=== PATIENT | male | born 1970 | race Two or more races ===

== ENCOUNTER 2017-12-31 09:00 | Inpatient (IN) ==
[2017-12-31 11:28] LABS: Baso % (Auto) 0.1 % (0.0-2.0); Hematocrit 40.3 % (39.0-51.0); Hemoglobin 13.9 gm/dL (13.0-17.0); Lymph # (Auto) 1.1 th/mm3 (1.0-4.8); Lymph % (Auto) 3.3 % (9.0-44.0); Mean Corpuscular HGB Conc 34.5 % (32.0-36.0); Mean Corpuscular Hemoglobin 30.1 pg (27.0-34.0); Mean Corpuscular Volume 87.1 fL (80.0-100.0); Mean Platelet Volume 8.3 fL (7.0-11.0); Mono # (Auto) 2.5 th/mm3 (0.0-0.9); Mono % (Auto) 7.6 % (0.0-8.0); Neut # (Auto) 29.3 th/mm3 (1.8-7.7); Platelet Count 237 th/mm3 (150-450); Red Blood Count 4.63 mil/mm3 (4.50-5.90); Red Cell Distribution Width 12.9 % (11.6-17.2); White Blood Count 32.9 th/mm3 (4.0-11.0)
[2017-12-31 11:34] LABS: Calcium 8.9 mg/dL (8.5-10.1); Carbon Dioxide 22.7 meq/L (21.0-32.0); Potassium 3.9 meq/L (3.5-5.1)
[2017-12-31] MEDS ORDERED: Clindamycin 900 mg/NS Premix 900 MG/50 ML PIGGYBACK IV.SIG ONE (11:43)
[2017-12-31 11:55] LABS: Lymphocytes 2 % (9-44); Monocytes 8 % (0-8)
[2017-12-31 11:57] LABS: Platelet Estimate Normal (Normal); Platelet Morphology Normal (Normal)
[2017-12-31] MEDS ORDERED: Morphine Inj 4 MG/ML Vial IV.PUSH ONE (13:22)
--- NOTE | 2017-12-31 15:11 | CT ---
EXAM DATE: 12/31/2017 2:37 PM EDT AGE/SEX: 47 years / Male INDICATIONS: Right sided jaw pain and swelling for two days. CLINICAL DATA: This is the patient's initial encounter. Patient reports that signs and symptoms have been present for 2 days and indicates a pain score of 7/10. MEDICAL/SURGICAL HISTORY: None. None. RADIATION DOSE: 15.91 CTDI (mGy) ; Combined studies COMPARISON: [facility], CT FACIAL BONES W IV CON, 12/31/2017. . TECHNIQUE: Helical acquisition was performed using a multirow detector CT scanner during the adminis tration of 82 ml Omnipaque 350 (iohexol) nonionic water-soluble contrast as a cumulative dose for mu ltiple exams. Using automated exposure control and adjustment of the mA and/or kV according to patie nt size, radiation dose was kept as low as reasonably achievable to obtain optimal diagnostic quality images. DICOM format image data is available electronically for review and comparison. FINDINGS: Examination of the skull base demonstrates no evidence of deep infiltrating mucosal lesion. The there is asymmetry of the tonsils and lateral pharyngeal wall with possible increased density within the p restyloid pericardial space on the left. Mucosal lesion involving the tonsil as well as the tongue ba se is not excluded and direct visualization is recommended. There is superficial cellulitis from the mandibular symphysis to the left with thickening of the platysma. There is no evidence of abscess. So litary glands appear normal. Examination of the neck for adenopathy demonstrates no abnormally large lymph nodes by CT criteria wi th the exception of an enlarged group 2 node on the left adjacent to the cellulitis. The thyroid glan d demonstrates no abnormality. Lung apices demonstrate no evidence of pulmonary nodule. Bone windows are unremarkable. CONCLUSION: Superficial cellulitis without abscess Possible mucosal lesion involving the left tonsil as well as the tongue base. Direct visualization is recommended Electronically signed by: Chester Quinones MD 12/31/2017 3:10 PM EDT
--- NOTE | 2017-12-31 15:14 | CT ---
EXAM DATE: 12/31/2017 2:40 PM EDT AGE/SEX: 47 years / Male INDICATIONS: Right sided jaw pain and swelling for two days. CLINICAL DATA: This is the patient's initial encounter. Patient reports that signs and symptoms have been present for 2 days and indicates a pain score of 7/10. MEDICAL/SURGICAL HISTORY: None. None. RADIATION DOSE: . CTDI (mGy) ; Reconstructed from previous dataset, no dose COMPARISON: No prior exams available for comparison. TECHNIQUE: Contiguous images in the axial and coronal planes were obtained using helical multirow de tector technique with 82 ml Omnipaque 350 (iohexol) nonionic water-soluble contrast as a cumulative dose for multiple exams. Using automated exposure control and adjustment of the mA and/or kV accordi ng to patient size, radiation dose was kept as low as reasonably achievable to obtain optimal diagnos tic quality images. DICOM format image data is available electronically for review and comparison. FINDINGS: There is superficial cellulitis with thickening of the platysma. In addition there is abnormal soft t issue density surrounding the body of the mandible at the level of the left molar with abnormal soft tissue density within the nurse licensed practical space. There is a possible subperiosteal fluid and this may refl ect abscess related to dental disease. In addition there is abnormal soft tissue density involving th e tonsil and glossotonsillar sulcus on the left with potential edema in the submandibular gland. Dire ct visualization is recommended. There is no bony destruction or periosteal reaction to suggest osteo myelitis. CONCLUSION: Phlegmonous changes involving the nurse licensed practical space on the left without discrete evidence of osteomyel itis. The findings may be related to dental disease. There is no evidence of abscess. Electronically signed by: Chester Quinones MD 12/31/2017 3:12 PM EDT
[2017-12-31] MEDS ORDERED: Dexamethasone Inj 20 MG/5 ML Vial IV.PUSH ONE (15:31)
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
[2017-12-31] MEDS ORDERED: Prochlorperazine 25 MG Supp RECTAL PRN (16:21)
[2017-12-31] MEDS ORDERED: Bisacodyl 10 MG Supp RECTAL PRN (16:21)
[2017-12-31] MEDS ORDERED: Dextrose 50% in Water 50 ML Vial IV.PUSH PRN (16:25)
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
[2017-12-31] MEDS: Sod Chloride 0.9% Inj 1,000 ML IV.CONT SCH (16:42)
[2017-12-31] MEDS: Ampicillin/Sulbactam Inj 3 GM in Sodium Chloride 0.9% Inj 100 ML IV.SIG SCH ×2 (16:50→22:53)
[2017-12-31] MEDS: Heparin - SQ 10,000 UNITS/ML Vial SQ SCH (17:10)
[2017-12-31] MEDS: Insulin NovoLOG Aspart Correctional Sugar Inj SQ SCH ×2 (18:22→23:45)
[2017-12-31] MEDS: Morphine Inj 4 MG/ML Vial IV.PUSH PRN ×3 (19:30→23:45)
[2017-12-31] MEDS: Famotidine PF Inj 20 MG/2 ML Vial IV.PUSH SCH (21:36)
[2017-12-31] MEDS: Senna/Docusate Sodium 8.6/50 MG Tablet PO SCH (21:51)
[2018-01-01] MEDS: Sod Chloride 0.9% Inj 1,000 ML IV.CONT SCH (02:58)
[2018-01-01] MEDS ORDERED: Chlorhexidine Gluconate 2% 1 Pack (2 Cloths) TOPICAL PRN (04:00)
[2018-01-01] MEDS: Ampicillin/Sulbactam Inj 3 GM in Sodium Chloride 0.9% Inj 100 ML IV.SIG SCH ×3 (04:42→17:37)
[2018-01-01] MEDS: Morphine Inj 4 MG/ML Vial IV.PUSH PRN ×6 (04:44→21:04)
[2018-01-01] MEDS: Chlorhexidine Gluconate 2% 1 Pack (2 Cloths) TOPICAL SCH (04:55)
[2018-01-01 05:00] LABS: Activated Partial Thrombo Time 33.6 sec (24.3-30.1); INR 1.1 Ratio; Prothrombin Time 11.6 sec (9.8-11.6)
[2018-01-01 05:10] LABS: Baso % (Auto) 0.1 % (0.0-2.0); Hematocrit 40.3 % (39.0-51.0); Hemoglobin 13.2 gm/dL (13.0-17.0); Lymph # (Auto) 0.9 th/mm3 (1.0-4.8); Mean Corpuscular HGB Conc 32.8 % (32.0-36.0); Mean Corpuscular Hemoglobin 29.1 pg (27.0-34.0); Mean Corpuscular Volume 88.8 fL (80.0-100.0); Mean Platelet Volume 8.5 fL (7.0-11.0); Mono % (Auto) 3.3 % (0.0-8.0); Neut # (Auto) 27.7 th/mm3 (1.8-7.7); Neut % (Auto) 93.6 % (16.0-70.0); Platelet Count 226 th/mm3 (150-450); Red Blood Count 4.54 mil/mm3 (4.50-5.90); White Blood Count 29.6 th/mm3 (4.0-11.0)
[2018-01-01 05:12] LABS: Albumin 3.2 g/dL (3.4-5.0); Anion Gap 8 meq/L (5-15); Aspartate Aminotransferase 11 U/L (15-37); Blood Urea Nitrogen 19 mg/dL (7-18); Calcium 8.9 mg/dL (8.5-10.1); Carbon Dioxide 26.9 meq/L (21.0-32.0); Chloride 103 meq/L (98-107); Glomerular Filtration Rate 85 mL/min (>89); Glucose,Random 126 mg/dL (74-106); Magnesium 2.1 mg/dL (1.5-2.5); Potassium 3.8 meq/L (3.5-5.1); Sodium 138 meq/L (136-145)
[2018-01-01 05:13] LABS: Alanine Aminotransferase 22 U/L (12-78); Phosphorus 2.1 mg/dL (2.5-4.9)
[2018-01-01 05:15] LABS: Alkaline Phosphatase 82 U/L (45-117); Creatine Kinase 140 U/L (39-308); Total Protein 7.5 g/dL (6.4-8.2)
[2018-01-01] MEDS: Heparin - SQ 10,000 UNITS/ML Vial SQ SCH ×2 (06:03→17:38)
[2018-01-01] MEDS: Insulin NovoLOG Aspart Correctional Sugar Inj SQ SCH ×3 (06:04→17:56)
--- NOTE | 2018-01-01 08:01 | MH ---
cc: Simón Stafford MD DATE OF ADMISSION: 12/31/2017 CHIEF COMPLAINT: Left neck swelling. HISTORY OF PRESENT ILLNESS: This is a 47-year-old male who has had just a short-term history of fairly significant left neck swelling. The patient was well a week ago when longer. His symptoms really began over the weekend. He describes when he was eating, he had a sudden pain at one of his molars on the left. This occurred over the weekend and fairly rapidly he developed pain and swelling in the left mandible area. He presented to the emergency department with trismus. A CT completed there does show evidence of a doctor assistant space changes and likely left dental abscess. But in addition, a CT of the neck was completed and this suggested possible left tonsil lesion or swelling at the left tonsil and base of tongue area. The patient again had been completely well up until his dental symptoms. He has been started on IV steroids and antibiotic therapy and although not resolved, he does report improvement. Of note, his white blood cell count was significantly elevated over 32,000. The patient was placed in the intensive care unit out of abundance of caution for airway, although his airway has been fine. PAST MEDICAL HISTORY: Otherwise noncontributory for ENT. PHYSICAL EXAMINATION: A well-developed male in no distress. He is awake, alert and cooperative. The facial exam is symmetric. Facial nerve intact. The external ears are clear. The nasal exam shows no lesion, no bleeding. Exam of the neck does show some tenderness on the left side. I cannot palpate significant adenopathy. There is swelling adjacent to the left mandible and nidus of some more inflammation adjacent and immediately on the left mandible mid ramus. Intraorally, there is some residual swelling of the left tonsil, but no evidence of mucosal lesion and the uvula, now visible, is back towards the midline. ASSESSMENT/PLAN: Left dental abscess. This was a sudden onset and relates initially to a dental infection. The CT findings appeared to be secondary to the left neck infection and intraorally he is doing much better posteriorly as the steroids and antibiotics are taking effect. However, he has not resolved his dental problem. He still feels pain in his tooth; therefore, he should have an oral surgery consult to address the underlying problem. ENT will follow as needed. 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 He is responding to IV antibiotics and IV steroids and has had diminished swelling and in the intermediate period should be continued on his IV medications for the next 48 hours. A consultation as inpatient is not possible; however, Dr. Darling's group has graciously agreed to see the patient once discharged as an outpatient. This was completed by the health care coordinator and information has been sent. Therefore, I recommend the patient continue his IV medications with IV steroids today, Monday and Monday and then discharge to follow up with the oral surgery practice of Dr. Darling as an outpatient. Unfortunately, treatment of his oral problems is outside the scope of ENT. Simón Stafford MD JPTrever/MARY , 07:46 AM , 08:00 AM
[2018-01-01] MEDS: Famotidine PF Inj 20 MG/2 ML Vial IV.PUSH SCH ×2 (08:34→21:03)
[2018-01-01] MEDS: Senna/Docusate Sodium 8.6/50 MG Tablet PO SCH ×2 (08:35→21:07)
--- NOTE | 2018-01-01 10:11 | P.PNCC ---
Subjective Subjective Remarks/Hospital Course: This is a 47-year-old male. Date of admission 12/31/2017. Past medical history is nil. Yesterday, patient was eating a pork chop when he felt like he bit into some cartilage or bone at the back of his tongue. No complications immediately post noted per patient. This morning, patient awoke with a swollen left mandible. Patient took ibuprofen and acetaminophen without relief. He also placed ice on this without relief. He had difficulty swallowing. He presented to [facility] for further evaluation treatment. Patient was noted to have a leukocytosis of 32,000. CT facial bones revealed superficial cellulitis without abscess involving the mandibular symphysis to the left with thickening of the platysma. There is also asymmetry of the tonsils and lateral pharyngeal wall with possible increased density within the prestyloid pericardial space to the left. There is a mucosal lesion involving the tonsils well noted at the tongue base is not excluded and they recommended direct visualization. ENT was consulted by the ED. Patient received 900 mg of clindamycin and 10 mg of dexamethasone. Patient currently has 2 finger trismus. Unable to visualize uvula directly. There is obvious erythema. There is normal phonation. Patient complaining of thirst. We are asked to observe in ICU 01/01 Patient is lying in bed in NAD. afebrile. Objective Vital Signs / I&O: Vital Signs 12/31/17 13:20 12/31/17 13:45 12/31/17 15:51 Temperature Pulse Rate 80 Respiratory Rate 18 18 Blood Pressure 109/53 L 119/56 L Pulse Oximetry 97 12/31/17 18:00 12/31/17 18:13 12/31/17 18:56 Temperature 97.9 F Pulse Rate 80 85 Respiratory Rate 14 21 Blood Pressure 146/69 H Pulse Oximetry 98 97 97 12/31/17 19:00 12/31/17 19:02 12/31/17 19:36 Temperature 99.8 F H Pulse Rate 71 74 Respiratory Rate 26 H 26 H Blood Pressure 146/69 H 146/69 H Pulse Oximetry 97 12/31/17 20:00 12/31/17 21:00 12/31/17 21:37 Temperature 99.8 F H Pulse Rate 80 75 Respiratory Rate 20 20 20 Blood Pressure 125/68 129/67 Pulse Oximetry 95 100 12/31/17 21:49 12/31/17 21:51 12/31/17 22:00 Temperature 99.8 F H Pulse Rate 72 69 Respiratory Rate 14 20 15 Blood Pressure 125/68 130/71 Pulse Oximetry 97 97 12/31/17 23:00 01/01/18 00:00 01/01/18 00:52 Temperature 98.7 F Pulse Rate 64 68 Respiratory Rate 21 15 20 Blood Pressure 127/65 129/68 Pulse Oximetry 96 95 01/01/18 01:00 01/01/18 02:00 01/01/18 02:29 Temperature 99 F Pulse Rate 63 63 Respiratory Rate 19 22 20 Blood Pressure 118/69 128/72 Pulse Oximetry 94 L 96 01/01/18 03:00 01/01/18 04:00 01/01/18 04:55 Temperature 98.8 F Pulse Rate 68 58 L Respiratory Rate 20 12 20 Blood Pressure 117/70 107/58 L Pulse Oximetry 96 98 01/01/18 05:00 01/01/18 06:00 01/01/18 07:00 Temperature 98.6 F Pulse Rate 66 61 63 Respiratory Rate 14 11 L 21 Blood Pressure 132/76 102/55 L 139/79 Pulse Oximetry 97 96 98 01/01/18 08:00 01/01/18 08:59 01/01/18 09:00 Temperature 98.6 F Pulse Rate 73 73 Respiratory Rate 23 17 Blood Pressure 124/72 115/66 Pulse Oximetry 95 96 Intake & Output 12/31/17 01/01/18 01/01/18 18:59 06:59 18:59 Intake Total 150 / 150 1400 / 1400 Output Total 550 / 550 Balance 150 / 150 850 / 850 Weight 103.1 kg 103.2 kg Intake: IV 150 / 150 1400 / 1400 NS Inj 1,000 ML @ 84 mls/hr IV. 1000 / 1000 CONT .[id number] NOHEMY Rx#:[id number] Ofirmev Inj 1,000 mg In 100 ml 200 / 200 @ 400 mls/hr IV.SIG Q6H PRN Rx# :[id number] Unasyn Inj 3 GM In NS Inj 100 100 / 100 200 / 200 ML @ 200 mls/hr IV.SIG Q6H NOHEMY Rx#:[id number] Cleocin 900 mg/NS Premix 900 mg 50 / 50 In 50 ml @ 100 mls/hr IV.SIG ONCE ONE Rx#:[id number] Oral 0 / 0 Output: Urine 550 / 550 Other: # Voids 1 Date of Last Bowel Movement 12/31/17 12/31/17 Result Diagrams: 01/01/18 04:39 01/01/18 04:39 Other Results: Laboratory Results - last 12 hr 12/31/17 12/31/17 01/01/18 18:35 23:23 04:39 WBC 29.6 H RBC 4.54 Hgb 13.2 Hct 40.3 MCV 88.8 MCH 29.1 MCHC 32.8 RDW 13.0 Plt Count 226 MPV 8.5 Neut % (Auto) 93.6 H Lymph % (Auto) 3.0 L [place] % (Auto) 3.3 Eos % (Auto) 0.0 Baso % (Auto) 0.1 Neut # (Auto) 27.7 H Lymph # (Auto) 0.9 L [place] # (Auto) 1.0 H Eos # (Auto) 0.0 Baso # (Auto) 0.0 WBC Differential . Differential Comment Auto diff final PT INR APTT Sodium Potassium Chloride Carbon Dioxide Anion Gap BUN Creatinine Estimated GFR POC Glucose 130 H Random Glucose Lactic Acid Calcium Phosphorus Magnesium Total Bilirubin AST ALT Alkaline Phosphatase Total Creatine Kinase Total Protein Albumin Nasal Screen MRSA (PCR) Not detected 01/01/18 01/01/18 01/01/18 04:39 04:39 04:39 WBC RBC Hgb Hct MCV MCH MCHC RDW Plt Count MPV Neut % (Auto) Lymph % (Auto) [place] % (Auto) Eos % (Auto) Baso % (Auto) Neut # (Auto) Lymph # (Auto) [place] # (Auto) Eos # (Auto) Baso # (Auto) WBC Differential Differential Comment PT 11.6 INR 1.1 APTT 33.6 H Sodium 138 Potassium 3.8 Chloride 103 Carbon Dioxide 26.9 Anion Gap 8 BUN 19 H Creatinine 0.96 Estimated GFR 85 L POC Glucose Random Glucose 126 H Lactic Acid 1.3 Calcium 8.9 Phosphorus 2.1 L Magnesium 2.1 Total Bilirubin 0.5 AST 11 L ALT 22 Alkaline Phosphatase 82 Total Creatine Kinase 140 Total Protein 7.5 Albumin 3.2 L Nasal Screen MRSA (PCR) 01/01/18 06:02 WBC RBC Hgb Hct MCV MCH MCHC RDW Plt Count MPV Neut % (Auto) Lymph % (Auto) [place] % (Auto) Eos % (Auto) Baso % (Auto) Neut # (Auto) Lymph # (Auto) [place] # (Auto) Eos # (Auto) Baso # (Auto) WBC Differential Differential Comment PT INR APTT Sodium Potassium Chloride Carbon Dioxide Anion Gap BUN Creatinine Estimated GFR POC Glucose 122 H Random Glucose Lactic Acid Calcium Phosphorus Magnesium Total Bilirubin AST ALT Alkaline Phosphatase Total Creatine Kinase Total Protein Albumin Nasal Screen MRSA (PCR) Imaging: Face CT 12/31/17 11:01 CONCLUSION: Phlegmonous changes involving the therapeutic recreation assistant space on the 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 The findings may be related to dental disease. There is no evidence of abscess. Soft Tissue Neck CT 12/31/17 11:34 CONCLUSION: Superficial cellulitis without abscess Possible mucosal lesion involving the left tonsil as well as the tongue base. Direct visualization is recommended Objective Remarks: GENERAL: Patient is 47 yo lying in bed in NAD SKIN: Warm and dry. HEAD: Normocephalic. EYES: No scleral icterus. No injection or drainage. NECK: Supple, trachea midline. No JVD or lymphadenopathy. CARDIOVASCULAR: Regular rate and rhythm without murmurs, gallops, or rubs. RESPIRATORY: Breath sounds equal bilaterally. No accessory muscle use. GASTROINTESTINAL: Abdomen soft, non-tender, nondistended. MUSCULOSKELETAL: No cyanosis, or edema. Neuro: Awake and alert Assessment and Plan - Assessment and Plan Plan: Neuro/Psych: Ofirmev 1 g IV every 6 hours as needed fever/pain 1 through 5 Morphine sulfate 2 mg IV every 2 hours as needed pain 6-10 CV: Patient is currently normal saline at 84 cc an hour Monitor HR and BP keep MAP>65mmHg Lactic acid 1.3 Resp: Continue with oxygen keep sats >92% Incentive spirometry while awake As needed albuterol aerosols every 2 hours as needed for dyspnea GI: N.p.o. status Famotidine for GI prophylaxis Docusate sodium/senna 1 tablet twice daily for bowel regimen Endo: SSI with aspart insulin with Accu-Cheks every 6 hours to maintain euglycemia while on high-dose dexamethasone Renal: Monitor renal function, I/O's, electrolytes replaceemnt per protocol. IVF as stated above Heme: Leukocytosis neutrophil predominance Monitor CBC daily. Follow trends ID: Left mandible cellulitis. Currently on ampicillin/sulbactam 3 g IV every 6 hours. Received 900 mg clindamycin in ED. On Decadron 4mg IV Q6 Follow up on BC, ID eval. ENT: Left superficial cellulitis without abscess. Possible mucosal lesion involving the left tonsil and tongue base. Di Seen by Dr. Stafford , OMFS consulted Continue antibiotics as above and dexamethasone 4 mg IV every [address] soft tissue neck revealed asymmetry of the tonsils and lateral pharyngeal wall with possible increased density within the styloid pericardial space left. Mucosal lesion involving the tonsils was time based on excluded. Superficial cellulitis from the mandibular symphysis to the left with thickening of the platysma. No abscess. Possible large continued left adjacent cellulitis. Access -Utilize peripheral IV. Prophylaxis -GI -famotidine -DVT -SCD/heparin subcu Will sign off and transfer care to [facility]P Level 2
[2018-01-01] MEDS ORDERED: Magnesium Sulfate Inj 4 GM in Sodium Chlor 0.9% Inj 92 ML IV.SIG PRN (10:17)
[2018-01-01] MEDS ORDERED: Potassium Chlor 40 mEq Premix 40 MEQ/100 ML PIGGYBACK IV.SIG PRN ×2 (10:17)
[2018-01-01] MEDS ORDERED: Potassium Phosphate Inj 30 MMOL in Sodium Chlor 0.9% Inj 250 ML IV.SIG PRN (10:17)
[2018-01-01] MEDS ORDERED: Potassium Phosphate 500 MG Soluble Tablet PO PRN ×2 (10:17)
[2018-01-01] MEDS ORDERED: Potassium Chloride 25 MEQ Effervescent Tablet PO PRN (10:17)
[2018-01-01] MEDS ORDERED: Magnesium Oxide 400 MG Tablet PO PRN (10:17)
[2018-01-01] MEDS ORDERED: Sodium Phosphate Inj 30 MMOL in Sodium Chlor 0.9% Inj 250 ML IV.SIG PRN (10:17)
[2018-01-01] MEDS ORDERED: Magnesium Sulfate Inj 2 GM in Sodium Chlor 0.9% Inj 96 ML IV.SIG PRN (10:17)
[2018-01-01] MEDS ORDERED: Potassium Chlor 20 mEq Premix 20 MEQ/100 ML PIGGYBACK IV.SIG PRN ×2 (10:17)
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
[2018-01-02] MEDS: Ampicillin/Sulbactam Inj 3 GM in Sodium Chloride 0.9% Inj 100 ML IV.SIG SCH ×5 (00:28→23:55)
[2018-01-02] MEDS: Morphine Inj 4 MG/ML Vial IV.PUSH PRN (01:07)
[2018-01-02] MEDS: Sod Chloride 0.9% Inj 1,000 ML IV.CONT SCH (01:10)
[2018-01-02 03:30] LABS: Hematocrit 36.9 % (39.0-51.0); Hemoglobin 12.2 gm/dL (13.0-17.0); Lymph % (Auto) 3.6 % (9.0-44.0); Mean Corpuscular HGB Conc 33.1 % (32.0-36.0); Mean Corpuscular Hemoglobin 29.2 pg (27.0-34.0); Mean Corpuscular Volume 88.2 fL (80.0-100.0); Mean Platelet Volume 8.6 fL (7.0-11.0); Mono # (Auto) 1.6 th/mm3 (0.0-0.9); Mono % (Auto) 5.7 % (0.0-8.0); Neut # (Auto) 25.4 th/mm3 (1.8-7.7); Neut % (Auto) 90.7 % (16.0-70.0); Platelet Count 238 th/mm3 (150-450); Red Blood Count 4.19 mil/mm3 (4.50-5.90); Red Cell Distribution Width 12.7 % (11.6-17.2)
[2018-01-02] MEDS: Chlorhexidine Gluconate 2% 1 Pack (2 Cloths) TOPICAL SCH (05:46)
[2018-01-02] MEDS: Heparin - SQ 10,000 UNITS/ML Vial SQ SCH ×2 (05:47→17:54)
[2018-01-02] MEDS: Insulin NovoLOG Aspart Correctional Sugar Inj SQ SCH ×4 (07:30→17:57)
[2018-01-02] MEDS: Famotidine PF Inj 20 MG/2 ML Vial IV.PUSH SCH ×2 (09:04→23:55)
[2018-01-02] MEDS: Senna/Docusate Sodium 8.6/50 MG Tablet PO SCH ×2 (09:04→23:56)
--- NOTE | 2018-01-02 09:40 | P.PN ---
Subjective Interval history: Follow-up for left-sided odontogenic infection. Patient is currently doing well. No fever or chills. He reports significant pain, however. He is able to tolerate liquid diet and requests Ensure. Physical Exam Vital signs: Vital Signs 01/01/18 10:00 01/01/18 10:09 01/01/18 11:06 Temperature Pulse Rate 75 70 73 Respiratory Rate 33 H 34 H 49 H Blood Pressure 125/62 139/52 L Pulse Oximetry 97 96 98 01/01/18 12:00 01/01/18 14:41 01/01/18 18:09 Temperature 98.3 F 99.4 F Pulse Rate 72 72 Respiratory Rate 21 18 Blood Pressure 146/67 H 146/72 H Pulse Oximetry 96 96 96 01/01/18 20:00 01/02/18 00:00 01/02/18 04:00 Temperature 99.2 F 98.5 F 98.4 F Pulse Rate 74 72 56 L Respiratory Rate 18 18 Blood Pressure 135/75 152/64 H 117/60 Pulse Oximetry 95 97 97 Intake & Output 01/01/18 01/02/18 01/02/18 18:59 06:59 18:59 Intake Total 1100 / 1100 200 / 200 Output Total 425 / 425 Balance 675 / 675 200 / 200 Intake: IV 1100 / 1100 200 / 200 NS Inj 1,000 ML @ 84 mls/hr IV. 1000 / 1000 CONT .[id number] NOHEMY Rx#:[id number] Unasyn Inj 3 GM In NS Inj 100 100 / 100 200 / 200 ML @ 200 mls/hr IV.SIG Q6H NOHEMY Rx#:[id number] Output: Urine 425 / 425 Other: # Voids 3 Date of Last Bowel Movement 12/31/17 12/31/17 Narrative: GENERAL: Alert, oriented 3, NAD. SKIN: Warm and dry. HEAD: Normocephalic. Significant left-sided jaw area tenderness on palpation, induration noted. No drainage. EYES: No scleral icterus. No injection or drainage. NECK: Supple, trachea midline. No JVD or lymphadenopathy. CARDIOVASCULAR: Regular rate and rhythm without murmurs, gallops, or rubs. RESPIRATORY: Breath sounds equal bilaterally. No accessory muscle use. GASTROINTESTINAL: Abdomen soft, non-tender, nondistended. MUSCULOSKELETAL: No cyanosis, or edema. BACK: Nontender without obvious deformity. No CVA tenderness. Results - Labs CBC & Chem 7: 01/02/18 03:09 01/01/18 04:39 Laboratory Results - last 24 hr 01/01/18 01/01/18 01/02/18 11:04 17:40 00:57 WBC RBC Hgb Hct MCV MCH MCHC RDW Plt Count MPV Neut % (Auto) Lymph % (Auto) [place] % (Auto) Eos % (Auto) Baso % (Auto) Neut # (Auto) Lymph # (Auto) [place] # (Auto) Eos # (Auto) Baso # (Auto) WBC Differential Differential Comment POC Glucose 118 H 127 H 131 H 01/02/18 01/02/18 03:09 05:40 WBC 28.0 H RBC 4.19 L Hgb 12.2 L Hct 36.9 L MCV 88.2 MCH 29.2 MCHC 33.1 RDW 12.7 Plt Count 238 MPV 8.6 Neut % (Auto) 90.7 H Lymph % (Auto) 3.6 L [place] % (Auto) 5.7 Eos % (Auto) 0.0 Baso % (Auto) 0.0 Neut # (Auto) 25.4 H Lymph # (Auto) 1.0 [place] # (Auto) 1.6 H Eos # (Auto) 0.0 Baso # (Auto) 0.0 WBC Differential . Differential Comment Auto diff final POC Glucose 120 H Microbiology 12/31/17 11:40 Blood - Peripheral Aerobic Blood Culture - Preliminary No growth in 1 day 12/31/17 11:40 Blood - Peripheral Anaerobic Blood Culture - Preliminary No growth in 1 day 12/31/17 11:40 Blood - Peripheral Aerobic Blood Culture - Preliminary No growth in 1 day 12/31/17 11:40 Blood - Peripheral Anaerobic Blood Culture - Preliminary No growth in 1 day - Imaging Impressions Face CT 12/31/17 11:01 CONCLUSION: Phlegmonous changes involving the beam press operator space on the 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 The findings may be related to dental disease. There is no evidence of abscess. Soft Tissue Neck CT 12/31/17 11:34 CONCLUSION: Superficial cellulitis without abscess Possible mucosal lesion involving the left tonsil as well as the tongue base. Direct visualization is recommended Assessment and Plan - Assessment (1) Odontogenic infection of jaw Code(s): M27.2 - Inflammatory conditions of jaws Status: Acute - Plan Mr. Hoang is a pleasant 47-year-old male with no significant medical history who was admitted to the hospital on 12/31/2017 due to left-sided odontogenic jaw infection. CT facial bones revealed superficial cellulitis without abscess. ENT was consulted who recommended oral surgery evaluation in the outpatient setting. No ENT acute issues. Infectious disease was consulted who recommended Unasyn IV. Odontogenic infection of left jaw -Continue Unasyn 3 g IV every 6 hours. Infectious disease is following. -Patient will need outpatient oral surgery evaluation. Dr. Roberts apparently has agreed to see the patient in his office. -Continue liquid diet and add Ensure. -Currently on IV acetaminophen and morphine IV for pain control. Will try to switch to oral medications. Full code. Heparin subcutaneous.
--- NOTE | 2018-01-02 17:35 | P.PNID ---
Subjective Remarks: he c/o more pain and swelling of his L cheek WBC is 28 K no fever Antibiotics: unasyn Allergies/Adverse Reactions: Allergies No Known Allergies Allergy (Verified 12/31/17 11:13) Objective Vital Signs 01/01/18 18:09 01/01/18 20:00 01/02/18 00:00 Temperature 99.2 F 98.5 F Pulse Rate 74 72 Respiratory Rate 18 Blood Pressure 135/75 152/64 H Pulse Oximetry 96 95 97 01/02/18 04:00 01/02/18 07:00 01/02/18 08:00 Temperature 98.4 F 98.5 F Pulse Rate 56 L 62 Respiratory Rate 18 18 20 Blood Pressure 117/60 143/80 H Pulse Oximetry 97 98 01/02/18 12:00 01/02/18 16:00 Temperature 98.2 F 98.7 F Pulse Rate 57 L Respiratory Rate 20 20 Blood Pressure 142/72 H 130/66 Pulse Oximetry 97 99 Intake & Output 01/01/18 01/02/18 01/02/18 18:59 06:59 18:59 Intake Total 1100 / 1100 300 / 300 Output Total 425 / 425 5 / 5 Balance 675 / 675 300 / 300 -5 / -5 Intake: IV 1100 / 1100 300 / 300 NS Inj 1,000 ML @ 84 mls/hr IV. 1000 / 1000 CONT .[id number] NOHEMY Rx#:[id number] Unasyn Inj 3 GM In NS Inj 100 100 / 100 300 / 300 ML @ 200 mls/hr IV.SIG Q6H NOHEMY Rx#:[id number] Output: Urine 425 / 425 3 / 3 Stool 2 / 2 Other: # Voids 3 Date of Last Bowel Movement 12/31/17 12/31/17 01/02/18 12/31/17 11:40 Blood - Peripheral Aerobic Blood Culture - Preliminary No growth in 2 days 12/31/17 11:40 Blood - Peripheral Anaerobic Blood Culture - Preliminary No growth in 2 days 12/31/17 11:40 Blood - Peripheral Aerobic Blood Culture - Preliminary No growth in 2 days 12/31/17 11:40 Blood - Peripheral Anaerobic Blood Culture - Preliminary No growth in 2 days Lab - Hematology Results 01/01/18 01/02/18 04:39 03:09 WBC 29.6 H 28.0 H RBC 4.54 4.19 L Hgb 13.2 12.2 L Hct 40.3 36.9 L MCV 88.8 88.2 MCH 29.1 29.2 MCHC 32.8 33.1 RDW 13.0 12.7 Plt Count 226 238 MPV 8.5 8.6 Neut % (Auto) 93.6 H 90.7 H Lymph % (Auto) 3.0 L 3.6 L [place] % (Auto) 3.3 5.7 Eos % (Auto) 0.0 0.0 Baso % (Auto) 0.1 0.0 Neut # (Auto) 27.7 H 25.4 H Lymph # (Auto) 0.9 L 1.0 [place] # (Auto) 1.0 H 1.6 H Eos # (Auto) 0.0 0.0 Baso # (Auto) 0.0 0.0 WBC Differential . . Differential Comment Auto diff final Auto diff final Lab - Chemistry Results 12/31/17 12/31/17 12/31/17 16:58 18:20 23:23 Sodium Potassium Chloride Carbon Dioxide Anion Gap BUN Creatinine Estimated GFR POC Glucose 105 112 H 130 H Random Glucose Lactic Acid Calcium Phosphorus Magnesium Total Bilirubin AST ALT Alkaline Phosphatase Total Creatine Kinase Total Protein Albumin 01/01/18 01/01/18 01/01/18 04:39 04:39 06:02 Sodium 138 Potassium 3.8 Chloride 103 Carbon Dioxide 26.9 Anion Gap 8 BUN 19 H Creatinine 0.96 Estimated GFR 85 L POC Glucose 122 H Random Glucose 126 H Lactic Acid 1.3 Calcium 8.9 Phosphorus 2.1 L Magnesium 2.1 Total Bilirubin 0.5 AST 11 L ALT 22 Alkaline Phosphatase 82 Total Creatine Kinase 140 Total Protein 7.5 Albumin 3.2 L 01/01/18 01/01/18 01/02/18 11:04 17:40 00:57 Sodium Potassium Chloride Carbon Dioxide Anion Gap BUN Creatinine Estimated GFR POC Glucose 118 H 127 H 131 H Random Glucose Lactic Acid Calcium Phosphorus Magnesium Total Bilirubin AST ALT Alkaline Phosphatase Total Creatine Kinase Total Protein Albumin 01/02/18 01/02/18 05:40 11:49 Sodium Potassium Chloride Carbon Dioxide Anion Gap BUN Creatinine Estimated GFR POC Glucose 120 H 116 H Random Glucose Lactic Acid Calcium Phosphorus Magnesium Total Bilirubin AST ALT Alkaline Phosphatase Total Creatine Kinase Total Protein Albumin Imaging: ITS Impressions Face CT 12/31/17 11:01 CONCLUSION: Phlegmonous changes involving the advanced analytics associate space on the 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 The findings may be related to dental disease. There is no evidence of abscess. Soft Tissue Neck CT 12/31/17 11:34 CONCLUSION: Superficial cellulitis without abscess Possible mucosal lesion involving the left tonsil as well as the tongue base. Direct visualization is recommended Physical Exam: GENERAL: NAD SKIN: Warm and dry. HEAD: Atraumatic. Normocephalic. EYES: Pupils equal and round. No scleral icterus. No injection or drainage. ENT: No nasal bleeding or discharge. Mucous membranes pink and moist. L cheek swelling appears mopre prominent today. Induration ids neris , no purulence noted on buccal area exam NECK: Trachea midline. No JVD. CARDIOVASCULAR: Regular rate and rhythm. RESPIRATORY: No accessory muscle use. Clear to auscultation. Breath sounds equal bilaterally. GASTROINTESTINAL: Abdomen soft, non-tender, nondistended. Hepatic and splenic margins not palpable. MUSCULOSKELETAL: Extremities without clubbing, cyanosis, or edema. No obvious deformities. NEUROLOGICAL: Awake and alert. No obvious cranial nerve deficits. Motor grossly within normal limits. Five out of 5 muscle strength in the arms and legs. Normal speech. PSYCHIATRIC: Appropriate mood and affect; insight and judgment normal. Assessment and Plan - Plan Odontogenioc infection L mastificator phlegmopne, probably forming and abscessabscess at this point Persistent leukocytosis No improving despite of abx cont unasyn monitor temps, monitor WBC cont to monitor for progressing to abscess gisela will require drainage since it appears that despite dw Dr Kanu Winchester not ready for d/c will reconsult aurgery tomorrow unless clear improvement
[2018-01-03] MEDS: Famotidine PF Inj 20 MG/2 ML Vial IV.PUSH SCH ×3 (00:14→22:11)
[2018-01-03] MEDS: Ampicillin/Sulbactam Inj 3 GM in Sodium Chloride 0.9% Inj 100 ML IV.SIG SCH ×6 (00:15→22:11)
[2018-01-03] MEDS: Insulin NovoLOG Aspart Correctional Sugar Inj SQ SCH ×4 (00:18→18:40)
[2018-01-03] MEDS: Morphine Inj 4 MG/ML Vial IV.PUSH PRN ×7 (02:37→22:10)
[2018-01-03 03:50] LABS: Alanine Aminotransferase 27 U/L (12-78); Albumin 3.1 g/dL (3.4-5.0); Anion Gap 8 meq/L (5-15); Aspartate Aminotransferase 15 U/L (15-37); Blood Urea Nitrogen 23 mg/dL (7-18); Calcium 8.6 mg/dL (8.5-10.1); Carbon Dioxide 26.8 meq/L (21.0-32.0); Chloride 106 meq/L (98-107); Glomerular Filtration Rate Greater Than 89 mL/min (>89); Glucose,Random 113 mg/dL (74-106); Potassium 3.9 meq/L (3.5-5.1); Sodium 141 meq/L (136-145)
[2018-01-03 03:52] LABS: Alkaline Phosphatase 84 U/L (45-117); Total Protein 6.9 g/dL (6.4-8.2)
[2018-01-03] MEDS: Chlorhexidine Gluconate 2% 1 Pack (2 Cloths) TOPICAL SCH (04:00)
[2018-01-03] MEDS: Heparin - SQ 10,000 UNITS/ML Vial SQ SCH ×2 (05:05→17:31)
[2018-01-03] MEDS: Senna/Docusate Sodium 8.6/50 MG Tablet PO SCH (08:45)
--- NOTE | 2018-01-03 12:16 | P.PN ---
Subjective Interval history: Follow-up for left-sided odontogenic infection. Patient complains of significant left-sided jaw area pain. No fever or chills. However he feels that his jaw swelling is getting slightly worse. He is applying cold compress. Physical Exam Vital signs: Vital Signs 01/02/18 16:00 01/02/18 20:00 01/02/18 20:07 Temperature 98.7 F 98.1 F Pulse Rate 57 L 58 L Respiratory Rate 20 18 Blood Pressure 130/66 122/80 Pulse Oximetry 99 98 94 L 01/03/18 00:00 01/03/18 08:00 Temperature 98.5 F 97.2 F L Pulse Rate 60 66 Respiratory Rate 18 19 Blood Pressure 130/77 141/84 H Pulse Oximetry 100 97 Intake & Output 01/02/18 01/03/18 01/03/18 18:59 06:59 18:59 Intake Total 920 / 920 200 / 200 Output Total 12 / 12 Balance 908 / 908 200 / 200 Intake: IV 200 / 200 200 / 200 Unasyn Inj 3 GM In NS Inj 100 200 / 200 200 / 200 ML @ 200 mls/hr IV.SIG Q6H NOHEMY Rx#:[id number] Oral 720 / 720 Output: Urine 8 / 8 Stool 4 / 4 Other: # Voids 3 Date of Last Bowel Movement 01/02/18 Narrative: GENERAL: Alert, oriented 3, NAD. SKIN: Warm and dry. HEAD: Normocephalic. Significant left-sided jaw area tenderness on palpation, induration noted. No drainage. EYES: No scleral icterus. No injection or drainage. NECK: Supple, trachea midline. No JVD or lymphadenopathy. CARDIOVASCULAR: Regular rate and rhythm without murmurs, gallops, or rubs. RESPIRATORY: Breath sounds equal bilaterally. No accessory muscle use. GASTROINTESTINAL: Abdomen soft, non-tender, nondistended. MUSCULOSKELETAL: No cyanosis, or edema. BACK: Nontender without obvious deformity. No CVA tenderness. Results - Labs CBC & Chem 7: 01/02/18 03:09 01/03/18 03:15 Laboratory Results - last 24 hr 01/02/18 01/03/18 01/03/18 17:55 00:04 03:15 Sodium 141 Potassium 3.9 Chloride 106 Carbon Dioxide 26.8 Anion Gap 8 BUN 23 H Creatinine 0.86 Estimated GFR Greater than 89 POC Glucose 118 H 124 H Random Glucose 113 H Calcium 8.6 Total Bilirubin 0.2 AST 15 ALT 27 Alkaline Phosphatase 84 Total Protein 6.9 D Albumin 3.1 L 01/03/18 11:22 Sodium Potassium Chloride Carbon Dioxide Anion Gap BUN Creatinine Estimated GFR POC Glucose 106 Random Glucose Calcium Total Bilirubin AST ALT Alkaline Phosphatase Total Protein Albumin Microbiology 12/31/17 11:40 Blood - Peripheral Aerobic Blood Culture - Preliminary No growth in 3 days 12/31/17 11:40 Blood - Peripheral Anaerobic Blood Culture - Preliminary No growth in 3 days 12/31/17 11:40 Blood - Peripheral Aerobic Blood Culture - Preliminary No growth in 3 days 12/31/17 11:40 Blood - Peripheral Anaerobic Blood Culture - Preliminary No growth in 3 days - Imaging Face CT 12/31/17 11:01 CONCLUSION: Phlegmonous changes involving the case hardener space on the 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 The findings may be related to dental disease. There is no evidence of abscess. Soft Tissue Neck CT 12/31/17 11:34 CONCLUSION: Superficial cellulitis without abscess Possible mucosal lesion involving the left tonsil as well as the tongue base. Direct visualization is recommended Assessment and Plan - Assessment (1) Odontogenic infection of jaw Code(s): M27.2 - Inflammatory conditions of jaws Status: Acute - Plan Mr. Hoang is a pleasant 47-year-old male with no significant medical history who was admitted to the hospital on 12/31/2017 due to left-sided odontogenic jaw infection. CT facial bones revealed superficial cellulitis without abscess. ENT was consulted who recommended oral surgery evaluation in the outpatient setting. No ENT acute issues. Infectious disease was consulted who recommended Unasyn IV. Odontogenic infection of left jaw -Continue Unasyn 3 g IV every 6 hours. Infectious disease is following. -Patient will need outpatient oral surgery evaluation. Dr. Darling apparently has agreed to see the patient in his office. -Continue liquid diet and add Ensure. -Currently on acetaminophen and morphine IV for pain control. -Persistent leukocytosis - Full code. Heparin subcutaneous.
[2018-01-03 12:49] LABS: Baso % (Auto) 0.1 % (0.0-2.0); Hematocrit 37.5 % (39.0-51.0); Hemoglobin 12.4 gm/dL (13.0-17.0); Lymph # (Auto) 1.2 th/mm3 (1.0-4.8); Lymph % (Auto) 4.5 % (9.0-44.0); Mean Corpuscular HGB Conc 33.1 % (32.0-36.0); Mean Corpuscular Hemoglobin 29.1 pg (27.0-34.0); Mean Corpuscular Volume 88.1 fL (80.0-100.0); Mean Platelet Volume 8.5 fL (7.0-11.0); Mono # (Auto) 1.5 th/mm3 (0.0-0.9); Mono % (Auto) 5.4 % (0.0-8.0); Neut # (Auto) 24.2 th/mm3 (1.8-7.7); Platelet Count 263 th/mm3 (150-450); Red Blood Count 4.26 mil/mm3 (4.50-5.90); Red Cell Distribution Width 12.8 % (11.6-17.2); White Blood Count 26.9 th/mm3 (4.0-11.0)
[2018-01-03 13:42] LABS: Lymphocytes 3 % (9-44); Metamyelocytes 3 % (0-1); Monocytes 8 % (0-8); Toxic Granulation 1+
[2018-01-03 13:45] LABS: Platelet Estimate Normal (Normal); Platelet Morphology Normal (Normal)
--- NOTE | 2018-01-03 16:12 | P.PNID ---
Subjective Remarks: doing worse More swelling of his L cheek asnd on the L side of the neck as well no fever Antibiotics: unasyn Allergies/Adverse Reactions: Allergies No Known Allergies Allergy (Verified 12/31/17 11:13) Objective Vital Signs 01/02/18 20:00 01/02/18 20:07 01/03/18 00:00 Temperature 98.1 F 98.5 F Pulse Rate 58 L 60 Respiratory Rate 18 18 Blood Pressure 122/80 130/77 Pulse Oximetry 98 94 L 100 01/03/18 08:00 01/03/18 12:00 Temperature 97.2 F L 98.4 F Pulse Rate 66 60 Respiratory Rate 19 18 Blood Pressure 141/84 H 139/74 Pulse Oximetry 97 98 Intake & Output 01/02/18 01/03/18 01/03/18 18:59 06:59 18:59 Intake Total 920 / 920 200 / 200 Output Total 12 12 Balance 908 / 908 200 / 200 Intake: IV 200 / 200 200 / 200 Unasyn Inj 3 GM In NS Inj 100 200 / 200 200 / 200 ML @ 200 mls/hr IV.SIG Q6H NOHEMY Rx#:[id number] Oral 720 / 720 Output: Urine 8 / 8 Stool 4 / 4 Other: # Voids 3 Date of Last Bowel Movement 01/02/18 12/31/17 11:40 Blood - Peripheral Aerobic Blood Culture - Preliminary No growth in 3 days 12/31/17 11:40 Blood - Peripheral Anaerobic Blood Culture - Preliminary No growth in 3 days 12/31/17 11:40 Blood - Peripheral Aerobic Blood Culture - Preliminary No growth in 3 days 12/31/17 11:40 Blood - Peripheral Anaerobic Blood Culture - Preliminary No growth in 3 days Lab - Hematology Results 01/02/18 01/03/18 03:09 12:25 WBC 28.0 H 26.9 H RBC 4.19 L 4.26 L Hgb 12.2 L 12.4 L Hct 36.9 L 37.5 L MCV 88.2 88.1 MCH 29.2 29.1 MCHC 33.1 33.1 RDW 12.7 12.8 Plt Count 238 263 MPV 8.6 8.5 Prelim Diff (Auto) Slide review pending Neut % (Auto) 90.7 H 90.0 H Lymph % (Auto) 3.6 L 4.5 L [place] % (Auto) 5.7 5.4 Eos % (Auto) 0.0 0.0 Baso % (Auto) 0.0 0.1 Neut # (Auto) 25.4 H 24.2 H Lymph # (Auto) 1.0 1.2 [place] # (Auto) 1.6 H 1.5 H Eos # (Auto) 0.0 0.0 Baso # (Auto) 0.0 0.0 WBC Differential . Manual diff final Seg Neuts % (Manual) 85 H Band Neuts % (Manual) 1 Lymphocytes % (Manual) 3 L Monocytes % (Manual) 8 Metamyelocytes % (Man) 3 H Abs Neuts (Manual) 23.9 H Differential Comment Auto diff final . Toxic Granulation 1+ H Platelet Estimate Normal Platelet Morphology Normal Lab - Chemistry Results 01/01/18 01/02/18 01/02/18 17:40 00:57 05:40 Sodium Potassium Chloride Carbon Dioxide Anion Gap BUN Creatinine Estimated GFR POC Glucose 127 H 131 H 120 H Random Glucose Calcium Total Bilirubin AST ALT Alkaline Phosphatase Total Protein Albumin 01/02/18 01/02/18 01/03/18 11:49 17:55 00:04 Sodium Potassium Chloride Carbon Dioxide Anion Gap BUN Creatinine Estimated GFR POC Glucose 116 H 118 H 124 H Random Glucose Calcium Total Bilirubin AST ALT Alkaline Phosphatase Total Protein Albumin 01/03/18 01/03/18 03:15 11:22 Sodium 141 Potassium 3.9 Chloride 106 Carbon Dioxide 26.8 Anion Gap 8 BUN 23 H Creatinine 0.86 Estimated GFR Greater than 89 POC Glucose 106 Random Glucose 113 H Calcium 8.6 Total Bilirubin 0.2 AST 15 ALT 27 Alkaline Phosphatase 84 Total Protein 6.9 D Albumin 3.1 L Imaging: ITS Impressions Face CT 12/31/17 11:01 CONCLUSION: Phlegmonous changes involving the 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 The findings may be related to dental disease. There is no evidence of abscess. Soft Tissue Neck CT 12/31/17 11:34 CONCLUSION: Superficial cellulitis without abscess Possible mucosal lesion involving the left tonsil as well as the tongue base. Direct visualization is recommended Physical Exam: GENERAL: NAD SKIN: Warm and dry. HEAD: Atraumatic. Normocephalic. EYES: Pupils equal and round. No scleral icterus. No injection or drainage. ENT: No nasal bleeding or discharge. Mucous membranes pink and moist. L cheek swelling appears very prominent today doubkled since yday. Induration ids neris , no purulence noted on buccal area exam ? some fluctuance Induration and edema on L submandibular area as well NECK: Trachea midline. No JVD. CARDIOVASCULAR: Regular rate and rhythm. RESPIRATORY: No accessory muscle use. Clear to auscultation. Breath sounds equal bilaterally. GASTROINTESTINAL: Abdomen soft, non-tender, nondistended. Hepatic and splenic margins not palpable. MUSCULOSKELETAL: Extremities without clubbing, cyanosis, or edema. No obvious deformities. NEUROLOGICAL: Awake and alert. No obvious cranial nerve deficits. Motor grossly within normal limits. Five out of 5 muscle strength in the arms and legs. Normal speech. PSYCHIATRIC: Appropriate mood and affect; insight and judgment normal. Assessment and Plan - Plan Odontogenioc infection L mastificator phlegmopne, forming an abscess at this point Persistent leukocytosis No improving despite of abx cont unasyn monitor temps, monitor WBC cont to monitor for progressing to abscess Pt needs surgical treatment at this point. Failed abx and no signs of sp; ontaneous drainage dw Dr Kanu Winchester not ready for d/c reconsult surgery or transfer if required specialist not avaiilable
[2018-01-03] MEDS: Sod Chloride 0.9% Inj 1,000 ML IV.CONT SCH (17:39)
--- NOTE | 2018-01-03 19:36 | P.PNCA ---
- Note Subjective/Hospital Course: 01/03/2018 Patient with periodontal abscess originating from the left molar and spreading into the left cheek into the occupational therapy professor area. This is a surgical urgency and should be addressed with transoral drainage and extraction of the offending teeth. There is significant risk of this spreading via the ophthalmic artery into the posterior eye or the calvarium and involving the meningeal membranes in form of meningitis or brain abscess as well as spreads inferiorly causing endocarditis or chest empyema. Based on this patient should have urgent drainage and if service is not available in this hospital patient should be transferred to appropriate institution. Full consult dictated Thanks J Objective: Vital Signs - 24 hr 01/02/18 20:00 01/02/18 20:07 01/03/18 00:00 Temperature 98.1 F 98.5 F Pulse Rate 58 L 60 Respiratory Rate 18 18 Blood Pressure 122/80 130/77 Pulse Oximetry 98 94 L 100 01/03/18 08:00 01/03/18 12:00 01/03/18 16:00 Temperature 97.2 F L 98.4 F 98.4 F Pulse Rate 66 60 59 L Respiratory Rate 19 18 17 Blood Pressure 141/84 H 139/74 130/75 Pulse Oximetry 97 98 95 Labs: Laboratory Results - last 12 hr 01/03/18 01/03/18 01/03/18 11:22 12:25 17:35 WBC 26.9 H RBC 4.26 L Hgb 12.4 L Hct 37.5 L MCV 88.1 MCH 29.1 MCHC 33.1 RDW 12.8 Plt Count 263 MPV 8.5 Prelim Diff (Auto) Slide review pending Neut % (Auto) 90.0 H Lymph % (Auto) 4.5 L [place] % (Auto) 5.4 Eos % (Auto) 0.0 Baso % (Auto) 0.1 Neut # (Auto) 24.2 H Lymph # (Auto) 1.2 [place] # (Auto) 1.5 H Eos # (Auto) 0.0 Baso # (Auto) 0.0 WBC Differential Manual diff final Seg Neuts % (Manual) 85 H Band Neuts % (Manual) 1 Lymphocytes % (Manual) 3 L Monocytes % (Manual) 8 Metamyelocytes % (Man) 3 H Abs Neuts (Manual) 23.9 H Differential Comment . Toxic Granulation 1+ H Platelet Estimate Normal Platelet Morphology Normal POC Glucose 106 121 H Result Diagrams: 01/03/18 12:25 01/03/18 03:15
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
[2018-01-04] MEDS: Insulin NovoLOG Aspart Correctional Sugar Inj SQ SCH ×4 (00:44→17:29)
[2018-01-04] MEDS: Ampicillin/Sulbactam Inj 3 GM in Sodium Chloride 0.9% Inj 100 ML IV.SIG SCH ×3 (04:34→16:27)
[2018-01-04] MEDS: Morphine Inj 4 MG/ML Vial IV.PUSH PRN ×3 (04:38→09:37)
[2018-01-04 07:01] LABS: Baso % (Auto) 0.2 % (0.0-2.0); Hematocrit 35.7 % (39.0-51.0); Hemoglobin 11.8 gm/dL (13.0-17.0); Lymph # (Auto) 1.5 th/mm3 (1.0-4.8); Lymph % (Auto) 6.7 % (9.0-44.0); Mean Corpuscular Hemoglobin 29.1 pg (27.0-34.0); Mean Corpuscular Volume 88.2 fL (80.0-100.0); Mean Platelet Volume 9.2 fL (7.0-11.0); Mono # (Auto) 1.1 th/mm3 (0.0-0.9); Mono % (Auto) 5.2 % (0.0-8.0); Neut # (Auto) 19.3 th/mm3 (1.8-7.7); Neut % (Auto) 87.9 % (16.0-70.0); Platelet Count 248 th/mm3 (150-450); Red Blood Count 4.04 mil/mm3 (4.50-5.90); Red Cell Distribution Width 12.7 % (11.6-17.2)
[2018-01-04 07:09] LABS: Anion Gap 7 meq/L (5-15); Calcium 7.9 mg/dL (8.5-10.1); Carbon Dioxide 28.5 meq/L (21.0-32.0); Chloride 105 meq/L (98-107); Glomerular Filtration Rate Greater Than 89 mL/min (>89); Glucose,Random 107 mg/dL (74-106); Potassium 3.9 meq/L (3.5-5.1); Sodium 140 meq/L (136-145)
[2018-01-04 07:14] LABS: Blood Urea Nitrogen 14 mg/dL (7-18)
[2018-01-04] MEDS: Heparin - SQ 10,000 UNITS/ML Vial SQ SCH ×2 (08:23→17:27)
[2018-01-04] MEDS: Senna/Docusate Sodium 8.6/50 MG Tablet PO SCH ×3 (08:24→21:05)
[2018-01-04] MEDS: Chlorhexidine Gluconate 2% 1 Pack (2 Cloths) TOPICAL SCH (08:24)
[2018-01-04] MEDS: Famotidine PF Inj 20 MG/2 ML Vial IV.PUSH SCH ×2 (09:34→21:05)
--- NOTE | 2018-01-04 11:00 | P.PN ---
Subjective Interval history: Follow-up for left-sided odontogenic infection. She does currently doing well. No fever or chills. She denies any airway compromise or trouble swallowing. Physical Exam Vital signs: Vital Signs 01/03/18 12:00 01/03/18 16:00 01/03/18 20:00 Temperature 98.4 F 98.4 F 97.9 F Pulse Rate 60 59 L 54 L Respiratory Rate 18 17 16 Blood Pressure 139/74 130/75 140/67 Pulse Oximetry 98 95 99 01/04/18 00:00 01/04/18 04:00 01/04/18 08:00 Temperature 98.0 F 97.7 F 98.7 F Pulse Rate 55 L 53 L 50 L Respiratory Rate 16 16 20 Blood Pressure 132/72 159/69 H 141/79 H Pulse Oximetry 98 98 95 Intake & Output 01/03/18 01/04/18 01/04/18 18:59 06:59 18:59 Intake Total 1400 / 1400 550 / 550 Output Total 5 / 5 1750 / 1750 Balance 1395 / 1395 -1200 / -1200 Weight 101.6 kg Intake: IV 200 / 200 200 / 200 Unasyn Inj 3 GM In NS Inj 100 200 / 200 200 / 200 ML @ 200 mls/hr IV.SIG Q6H NOHEMY Rx#:[id number] Oral 1200 / 1200 350 / 350 Output: Urine 5 / 5 1750 / 1750 Other: # Voids 1 Date of Last Bowel Movement 01/03/18 # Bowel Movements 2 1 Narrative: GENERAL: Alert, oriented 3, NAD. SKIN: Warm and dry. HEAD: Normocephalic. Significant left-sided jaw area tenderness on palpation, induration noted. No drainage. EYES: No scleral icterus. No injection or drainage. NECK: Supple, trachea midline. No JVD or lymphadenopathy. CARDIOVASCULAR: Regular rate and rhythm without murmurs, gallops, or rubs. RESPIRATORY: Breath sounds equal bilaterally. No accessory muscle use. GASTROINTESTINAL: Abdomen soft, non-tender, nondistended. MUSCULOSKELETAL: No cyanosis, or edema. BACK: Nontender without obvious deformity. No CVA tenderness. Results - Labs CBC & Chem 7: 01/04/18 05:22 01/04/18 05:22 Laboratory Results - last 24 hr 01/03/18 01/03/18 01/03/18 11:22 12:25 17:35 WBC 26.9 H RBC 4.26 L Hgb 12.4 L Hct 37.5 L MCV 88.1 MCH 29.1 MCHC 33.1 RDW 12.8 Plt Count 263 MPV 8.5 Prelim Diff (Auto) Slide review pending Neut % (Auto) 90.0 H Lymph % (Auto) 4.5 L [place] % (Auto) 5.4 Eos % (Auto) 0.0 Baso % (Auto) 0.1 Neut # (Auto) 24.2 H Lymph # (Auto) 1.2 [place] # (Auto) 1.5 H Eos # (Auto) 0.0 Baso # (Auto) 0.0 WBC Differential Manual diff final Seg Neuts % (Manual) 85 H Band Neuts % (Manual) 1 Lymphocytes % (Manual) 3 L Monocytes % (Manual) 8 Metamyelocytes % (Man) 3 H Abs Neuts (Manual) 23.9 H Differential Comment . Toxic Granulation 1+ H Platelet Estimate Normal Platelet Morphology Normal Sodium Potassium Chloride Carbon Dioxide Anion Gap BUN Creatinine Estimated GFR POC Glucose 106 121 H Random Glucose Calcium 01/04/18 01/04/18 01/04/18 00:38 05:22 05:22 WBC 22.0 H RBC 4.04 L Hgb 11.8 L Hct 35.7 L MCV 88.2 MCH 29.1 MCHC 33.0 RDW 12.7 Plt Count 248 MPV 9.2 Prelim Diff (Auto) Neut % (Auto) 87.9 H Lymph % (Auto) 6.7 L [place] % (Auto) 5.2 Eos % (Auto) 0.0 Baso % (Auto) 0.2 Neut # (Auto) 19.3 H Lymph # (Auto) 1.5 [place] # (Auto) 1.1 H Eos # (Auto) 0.0 Baso # (Auto) 0.0 WBC Differential . Seg Neuts % (Manual) Band Neuts % (Manual) Lymphocytes % (Manual) Monocytes % (Manual) Metamyelocytes % (Man) Abs Neuts (Manual) Differential Comment Auto diff final Toxic Granulation Platelet Estimate Platelet Morphology Sodium 140 Potassium 3.9 Chloride 105 Carbon Dioxide 28.5 Anion Gap 7 BUN 14 Creatinine 0.80 Estimated GFR Greater than 89 POC Glucose 111 H Random Glucose 107 H Calcium 7.9 L 01/04/18 06:41 WBC RBC Hgb Hct MCV MCH MCHC RDW Plt Count MPV Prelim Diff (Auto) Neut % (Auto) Lymph % (Auto) [place] % (Auto) Eos % (Auto) Baso % (Auto) Neut # (Auto) Lymph # (Auto) [place] # (Auto) Eos # (Auto) Baso # (Auto) WBC Differential Seg Neuts % (Manual) Band Neuts % (Manual) Lymphocytes % (Manual) Monocytes % (Manual) Metamyelocytes % (Man) Abs Neuts (Manual) Differential Comment Toxic Granulation Platelet Estimate Platelet Morphology Sodium Potassium Chloride Carbon Dioxide Anion Gap BUN Creatinine Estimated GFR POC Glucose 108 Random Glucose Calcium Microbiology 12/31/17 11:40 Blood - Peripheral Aerobic Blood Culture - Preliminary No growth in 3 days 12/31/17 11:40 Blood - Peripheral Anaerobic Blood Culture - Preliminary No growth in 3 days 12/31/17 11:40 Blood - Peripheral Aerobic Blood Culture - Preliminary No growth in 3 days 12/31/17 11:40 Blood - Peripheral Anaerobic Blood Culture - Preliminary No growth in 3 days - Imaging Face CT 12/31/17 11:01 CONCLUSION: Phlegmonous changes involving the operations professional space on the 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 The findings may be related to dental disease. There is no evidence of abscess. Soft Tissue Neck CT 12/31/17 11:34 CONCLUSION: Superficial cellulitis without abscess Possible mucosal lesion involving the left tonsil as well as the tongue base. Direct visualization is recommended Assessment and Plan - Assessment (1) Odontogenic infection of jaw Code(s): M27.2 - Inflammatory conditions of jaws Status: Acute - Plan Mr. Hoang is a pleasant 47-year-old male with no significant medical history who was admitted to the hospital on 12/31/2017 due to left-sided odontogenic jaw infection. CT facial bones revealed superficial cellulitis without abscess. ENT was consulted who recommended oral surgery evaluation in the outpatient setting. No ENT acute issues. Infectious disease was consulted who recommended Unasyn IV. Odontogenic infection of left jaw -Continue Unasyn 3 g IV every 6 hours. Infectious disease is following. -Discussed with Dr. Farfan yesterday and with his office today. -Plan is to transport patient from the hospital to Dr. Roche's office tomorrow morning at 8 AM. -Continue liquid diet and add Ensure. -Currently on acetaminophen and morphine IV for pain control. -Improving leukocytosis -white blood cell count dropped from 26.9K to 22K. Full code. Heparin subcutaneous.
--- NOTE | 2018-01-04 16:58 | P.PNID ---
Subjective Remarks: doing OK . NOt worse today Will be seen by Dr Thakur tomorrow in o/p office no fever Antibiotics: unasyn Allergies/Adverse Reactions: Allergies No Known Allergies Allergy (Verified 12/31/17 11:13) Objective Vital Signs 01/03/18 20:00 01/04/18 00:00 01/04/18 04:00 Temperature 97.9 F 98.0 F 97.7 F Pulse Rate 54 L 55 L 53 L Respiratory Rate 16 16 16 Blood Pressure 140/67 132/72 159/69 H Pulse Oximetry 99 98 98 01/04/18 08:00 01/04/18 12:00 Temperature 98.7 F 98.7 F Pulse Rate 50 L 57 L Respiratory Rate 20 20 Blood Pressure 141/79 H 146/84 H Pulse Oximetry 95 99 Intake & Output 01/03/18 01/04/18 01/04/18 18:59 06:59 18:59 Intake Total 1400 / 1400 550 / 550 100 / 100 Output Total 5 / 5 1750 / 1750 Balance 1395 / 1395 -1200 / -1200 100 / 100 Weight 101.6 kg Intake: IV 200 / 200 200 / 200 100 / 100 Unasyn Inj 3 GM In NS Inj 100 200 / 200 200 / 200 100 / 100 ML @ 200 mls/hr IV.SIG Q6H NOHEMY Rx#:[id number] Oral 1200 / 1200 350 / 350 Output: Urine / 5 1750 / 1750 Other: # Voids 1 Date of Last Bowel Movement 01/03/18 # Bowel Movements 2 1 12/31/17 11:40 Blood - Peripheral Aerobic Blood Culture - Preliminary No growth in 4 days 12/31/17 11:40 Blood - Peripheral Anaerobic Blood Culture - Preliminary No growth in 4 days 12/31/17 11:40 Blood - Peripheral Aerobic Blood Culture - Preliminary No growth in 4 days 12/31/17 11:40 Blood - Peripheral Anaerobic Blood Culture - Preliminary No growth in 4 days Lab - Hematology Results 01/03/18 01/04/18 12:25 05:22 WBC 26.9 H 22.0 H RBC 4.26 L 4.04 L Hgb 12.4 L 11.8 L Hct 37.5 L 35.7 L MCV 88.1 88.2 MCH 29.1 29.1 MCHC 33.1 33.0 RDW 12.8 12.7 Plt Count 263 248 MPV 8.5 9.2 Prelim Diff (Auto) Slide review pending Neut % (Auto) 90.0 H 87.9 H Lymph % (Auto) 4.5 L 6.7 L [place] % (Auto) 5.4 5.2 Eos % (Auto) 0.0 0.0 Baso % (Auto) 0.1 0.2 Neut # (Auto) 24.2 H 19.3 H Lymph # (Auto) 1.2 1.5 [place] # (Auto) 1.5 H 1.1 H Eos # (Auto) 0.0 0.0 Baso # (Auto) 0.0 0.0 WBC Differential Manual diff final . Seg Neuts % (Manual) 85 H Band Neuts % (Manual) 1 Lymphocytes % (Manual) 3 L Monocytes % (Manual) 8 Metamyelocytes % (Man) 3 H Abs Neuts (Manual) 23.9 H Differential Comment . Auto diff final Toxic Granulation 1+ H Platelet Estimate Normal Platelet Morphology Normal Lab - Chemistry Results 01/02/18 01/03/18 01/03/18 17:55 00:04 03:15 Sodium 141 Potassium 3.9 Chloride 106 Carbon Dioxide 26.8 Anion Gap 8 BUN 23 H Creatinine 0.86 Estimated GFR Greater than 89 POC Glucose 118 H 124 H Random Glucose 113 H Calcium 8.6 Total Bilirubin 0.2 AST 15 ALT 27 Alkaline Phosphatase 84 Total Protein 6.9 D Albumin 3.1 L 01/03/18 01/03/18 01/04/18 11:22 17:35 00:38 Sodium Potassium Chloride Carbon Dioxide Anion Gap BUN Creatinine Estimated GFR POC Glucose 106 121 H 111 H Random Glucose Calcium Total Bilirubin AST ALT Alkaline Phosphatase Total Protein Albumin 01/04/18 01/04/18 01/04/18 05:22 06:41 12:10 Sodium 140 Potassium 3.9 Chloride 105 Carbon Dioxide 28.5 Anion Gap 7 BUN 14 Creatinine 0.80 Estimated GFR Greater than 89 POC Glucose 108 134 H Random Glucose 107 H Calcium 7.9 L Total Bilirubin AST ALT Alkaline Phosphatase Total Protein Albumin 01/04/18 16:32 Sodium Potassium Chloride Carbon Dioxide Anion Gap BUN Creatinine Estimated GFR POC Glucose 103 Random Glucose Calcium Total Bilirubin AST ALT Alkaline Phosphatase Total Protein Albumin Imaging: ITS Impressions Face CT 12/31/17 11:01 CONCLUSION: Phlegmonous 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 The findings may be related to dental disease. There is no evidence of abscess. Soft Tissue Neck CT 12/31/17 11:34 CONCLUSION: Superficial cellulitis without abscess Possible mucosal lesion involving the left tonsil as well as the tongue base. Direct visualization is recommended Physical Exam: GENERAL: NAD SKIN: Warm and dry. HEAD: Atraumatic. Normocephalic. EYES: Pupils equal and round. No scleral icterus. No injection or drainage. ENT: No nasal bleeding or discharge. Mucous membranes pink and moist. L cheek swelling appears very prominent today doubled since yday. Induration ids neris , no purulence noted on buccal area exam ? some fluctuance Induration and edema on L submandibular area as well Essentially unchanges since yday NECK: Trachea midline. No JVD. CARDIOVASCULAR: Regular rate and rhythm. RESPIRATORY: No accessory muscle use. Clear to auscultation. Breath sounds equal bilaterally. GASTROINTESTINAL: Abdomen soft, non-tender, nondistended. Hepatic and splenic margins not palpable. MUSCULOSKELETAL: Extremities without clubbing, cyanosis, or edema. No obvious deformities. NEUROLOGICAL: Awake and alert. No obvious cranial nerve deficits. Motor grossly within normal limits. Five out of 5 muscle strength in the arms and legs. Normal speech. PSYCHIATRIC: Appropriate mood and affect; insight and judgment normal. Assessment and Plan - Plan Odontogenioc infection L mastificator phlegmopne, with probable abscess at this point Persistent leukocytosis No improving despite of abx cont unasyn monitor temps, monitor WBC cont to monitor for progressing to abscess Pt needs surgical treatment at this point. Failed abx and no signs of sp; ontaneous drainage dw Dr Kanu [place] not ready for d/c reconsult surgery or transfer if required specialist not avaiilable
[2018-01-05] MEDS: Ampicillin/Sulbactam Inj 3 GM in Sodium Chloride 0.9% Inj 100 ML IV.SIG SCH ×4 (00:07→17:24)
[2018-01-05] MEDS: Morphine Inj 4 MG/ML Vial IV.PUSH PRN ×3 (00:20→17:26)
[2018-01-05] MEDS: Insulin NovoLOG Aspart Correctional Sugar Inj SQ SCH ×4 (00:25→17:36)
[2018-01-05] MEDS: Sod Chloride 0.9% Inj 1,000 ML IV.CONT SCH ×4 (07:51→17:25)
[2018-01-05] MEDS: Chlorhexidine Gluconate 2% 1 Pack (2 Cloths) TOPICAL SCH (07:52)
[2018-01-05] MEDS: Heparin - SQ 10,000 UNITS/ML Vial SQ SCH ×2 (07:53→17:35)
[2018-01-05] MEDS: Famotidine PF Inj 20 MG/2 ML Vial IV.PUSH SCH ×2 (08:50→21:36)
[2018-01-05] MEDS: Senna/Docusate Sodium 8.6/50 MG Tablet PO SCH ×2 (08:50→21:30)
[2018-01-05 09:18] LABS: Baso % (Auto) 0.1 % (0.0-2.0); Hematocrit 40.2 % (39.0-51.0); Hemoglobin 13.1 gm/dL (13.0-17.0); Lymph # (Auto) 2.5 th/mm3 (1.0-4.8); Lymph % (Auto) 9.4 % (9.0-44.0); Mean Corpuscular HGB Conc 32.4 % (32.0-36.0); Mean Corpuscular Hemoglobin 28.6 pg (27.0-34.0); Mean Platelet Volume 9.1 fL (7.0-11.0); Mono # (Auto) 1.5 th/mm3 (0.0-0.9); Mono % (Auto) 5.7 % (0.0-8.0); Neut # (Auto) 22.8 th/mm3 (1.8-7.7); Neut % (Auto) 84.8 % (16.0-70.0); Platelet Count 309 th/mm3 (150-450); Red Blood Count 4.57 mil/mm3 (4.50-5.90); Red Cell Distribution Width 12.7 % (11.6-17.2); White Blood Count 26.9 th/mm3 (4.0-11.0)
[2018-01-05 09:32] LABS: Erythrocyte Sedimentation Rate 23 mm/hr (0-15)
[2018-01-05 10:04] LABS: Blast Cells 1 % (0-0); Lymphocytes 9 % (9-44); Metamyelocytes 1 % (0-1); Monocytes 7 % (0-8); Myelocytes 1 % (0-0); Platelet Estimate Normal (Normal)
[2018-01-05 10:05] LABS: Platelet Morphology Normal (Normal); RBC Morphology Normal (Normal)
[2018-01-05] MEDS ORDERED: MethylPREDNISolone Sod Succinate Inj 125 MG/2 ML Vial IV.PUSH ONE (10:15)
--- NOTE | 2018-01-05 10:25 | P.PN ---
Subjective Interval history: Follow-up for left-sided odontogenic infection. Patient went to Dr. Farfan's office today. Dr. Farfan extracted two teeth and drained abscess. He recommended Solu-medrol 125mg Once and keeping patient in the hospital today and tomorrow and plan on discharging him on Sunday 01/07. Physical Exam Vital signs: Vital Signs 01/04/18 12:00 01/04/18 16:00 01/04/18 20:00 Temperature 98.7 F 97.8 F 98 F Pulse Rate 57 L 58 L 55 L Respiratory Rate 20 20 18 Blood Pressure 146/84 H 155/86 H 150/83 H Pulse Oximetry 99 98 94 L 01/05/18 00:00 01/05/18 04:00 Temperature 97.3 F L 97.7 F Pulse Rate 54 L 49 L Respiratory Rate 18 18 Blood Pressure 157/73 H 129/73 Pulse Oximetry 94 L 96 Intake & Output 01/04/18 01/05/18 01/05/18 18:59 06:59 18:59 Intake Total 940 / 940 100 / 100 Output Total 850 / 850 1600 / 1600 Balance 90 / 90 -1500 / -1500 Weight 101.6 kg Intake: IV 100 / 100 100 / 100 Unasyn Inj 3 GM In NS Inj 100 100 / 100 100 / 100 ML @ 200 mls/hr IV.SIG Q6H NOHEMY Rx#:[id number] Oral 840 / 840 Output: Urine 850 / 850 1600 / 1600 Other: Date of Last Bowel Movement 01/04/18 01/04/18 Narrative: GENERAL: Alert, oriented 3, NAD. SKIN: Warm and dry. HEAD: Normocephalic. Significant left-sided jaw area tenderness on palpation, induration noted. No drainage. EYES: No scleral icterus. No injection or drainage. NECK: Supple, trachea midline. No JVD or lymphadenopathy. CARDIOVASCULAR: Regular rate and rhythm without murmurs, gallops, or rubs. RESPIRATORY: Breath sounds equal bilaterally. No accessory muscle use. GASTROINTESTINAL: Abdomen soft, non-tender, nondistended. MUSCULOSKELETAL: No cyanosis, or edema. BACK: Nontender without obvious deformity. No CVA tenderness. Results - Labs CBC & Chem 7: 01/05/18 07:11 01/04/18 05:22 Laboratory Results - last 24 hr 07/01/04/18 01/05/18 12:10 16:32 00:17 WBC RBC Hgb Hct MCV MCH MCHC RDW Plt Count MPV Prelim Diff (Auto) Neut % (Auto) Lymph % (Auto) [place] % (Auto) Eos % (Auto) Baso % (Auto) Neut # (Auto) Lymph # (Auto) [place] # (Auto) Eos # (Auto) Baso # (Auto) WBC Differential Seg Neuts % (Manual) Band Neuts % (Manual) Lymphocytes % (Manual) Monocytes % (Manual) Metamyelocytes % (Man) Myelocytes % (Man) Blast Cells % (Manual) Abs Neuts (Manual) Differential Comment Platelet Estimate Platelet Morphology RBC Morphology ESR POC Glucose 134 H 103 113 H 01/05/18 01/05/18 06:02 07:11 WBC 26.9 H RBC 4.57 Hgb 13.1 Hct 40.2 MCV 88.0 MCH 28.6 MCHC 32.4 RDW 12.7 Plt Count 309 MPV 9.1 Prelim Diff (Auto) Slide review pending Neut % (Auto) 84.8 H Lymph % (Auto) 9.4 [place] % (Auto) 5.7 Eos % (Auto) 0.0 Baso % (Auto) 0.1 Neut # (Auto) 22.8 H Lymph # (Auto) 2.5 [place] # (Auto) 1.5 H Eos # (Auto) 0.0 Baso # (Auto) 0.0 WBC Differential Manual diff final Seg Neuts % (Manual) 79 H Band Neuts % (Manual) 2 Lymphocytes % (Manual) 9 Monocytes % (Manual) 7 Metamyelocytes % (Man) 1 Myelocytes % (Man) 1 H Blast Cells % (Manual) 1 H Abs Neuts (Manual) 22.3 H Differential Comment . Platelet Estimate Normal Platelet Morphology Normal RBC Morphology Normal ESR 23 H POC Glucose 104 Microbiology 12/31/17 11:40 Blood - Peripheral Aerobic Blood Culture - Preliminary No growth in 4 days 12/31/17 11:40 Blood - Peripheral Anaerobic Blood Culture - Preliminary No growth in 4 days 12/31/17 11:40 Blood - Peripheral Aerobic Blood Culture - Preliminary No growth in 4 days 12/31/17 11:40 Blood - Peripheral Anaerobic Blood Culture - Preliminary No growth in 4 days Assessment and Plan - Assessment (1) Odontogenic infection of jaw Code(s): M27.2 - Inflammatory conditions of jaws Status: Acute - Plan Mr. Hoang is a pleasant 47-year-old male with no significant medical history who was admitted to the hospital on 12/31/2017 due to left-sided odontogenic jaw infection. CT facial bones revealed superficial cellulitis without abscess. ENT was consulted who recommended oral surgery evaluation in the outpatient setting. No ENT acute issues. Infectious disease was consulted who recommended Unasyn IV. Odontogenic infection of left jaw -Continue Unasyn 3 g IV every 6 hours. Infectious disease is following. -Dr. Farfan was kind enough to drain abscess, extract teeth in his office today. -Will give patient Solu-medrol 125mg Once and d/c Decadron. -Likely discharge home on 01/07 on PO abx. -Currently on acetaminophen and morphine IV for pain control. Full code. Heparin subcutaneous.
[2018-01-06] MEDS: Ampicillin/Sulbactam Inj 3 GM in Sodium Chloride 0.9% Inj 100 ML IV.SIG SCH ×5 (00:10→22:52)
[2018-01-06] MEDS: Insulin NovoLOG Aspart Correctional Sugar Inj SQ SCH ×3 (00:11→11:51)
[2018-01-06] MEDS: Sod Chloride 0.9% Inj 1,000 ML IV.CONT SCH ×4 (03:28→15:56)
[2018-01-06] MEDS: Heparin - SQ 10,000 UNITS/ML Vial SQ SCH ×2 (06:03→17:02)
[2018-01-06] MEDS: Senna/Docusate Sodium 8.6/50 MG Tablet PO SCH ×2 (08:40→20:35)
[2018-01-06] MEDS: Famotidine PF Inj 20 MG/2 ML Vial IV.PUSH SCH ×2 (08:40→20:35)
--- NOTE | 2018-01-06 13:11 | P.PN ---
Subjective Interval history: Follow-up for left-sided odontogenic infection. Patient is currently doing well. No acute concerns. No fever or chills. Tolerating diet well. Physical Exam Vital signs: Vital Signs 01/05/18 16:00 01/05/18 20:00 01/06/18 00:00 Temperature 97.9 F 98.1 F 98.1 F Pulse Rate 56 L 51 L 51 L Respiratory Rate 14 18 18 Blood Pressure 143/82 H 150/83 H 126/95 H Pulse Oximetry 95 99 95 01/06/18 04:00 01/06/18 07:00 01/06/18 08:00 Temperature 98.1 F Pulse Rate 61 52 L Respiratory Rate 16 16 Blood Pressure 141/73 H 145/81 H Pulse Oximetry 18 L 99 01/06/18 12:00 Temperature 97.8 F Pulse Rate 67 Respiratory Rate 18 Blood Pressure 126/74 Pulse Oximetry 98 Intake & Output 01/05/18 01/06/18 01/06/18 18:59 06:59 18:59 Intake Total 1100 / 1100 1200 / 1200 300 / 300 Output Total 400 / 400 700 / 700 1300 / 1300 Balance 700 / 700 500 / 500 -1000 / -1000 Weight 101.2 kg Intake: IV 1100 / 1100 1200 / 1200 300 / 300 NS Inj 1,000 ML @ 84 mls/hr IV. 1000 / 1000 1000 / 1000 CONT .[id number] NOHEMY Rx#:[id number] Ofirmev Inj 1,000 mg In 100 ml 100 / 100 @ 400 mls/hr IV.SIG Q6H PRN Rx# :[id number] Unasyn Inj 3 GM In NS Inj 100 100 / 100 200 / 200 200 / 200 ML @ 200 mls/hr IV.SIG Q6H NOHEMY Rx#:[id number] Output: Urine 400 / 400 700 / 700 1300 / 1300 Other: # Voids 2 Date of Last Bowel Movement 01/04/18 01/05/18 Narrative: GENERAL: Alert, oriented 3, NAD. SKIN: Warm and dry. HEAD: Normocephalic. Status post I&D by oral surgery. EYES: No scleral icterus. No injection or drainage. NECK: Supple, trachea midline. No JVD or lymphadenopathy. CARDIOVASCULAR: Regular rate and rhythm without murmurs, gallops, or rubs. RESPIRATORY: Breath sounds equal bilaterally. No accessory muscle use. GASTROINTESTINAL: Abdomen soft, non-tender, nondistended. MUSCULOSKELETAL: No cyanosis, or edema. BACK: Nontender without obvious deformity. No CVA tenderness. Results - Labs CBC & Chem 7: 01/05/18 07:11 01/04/18 05:22 Microbiology 01/05/18 Unknown Wound - Mouth Fungal Smear - Final No fungal elements seen 01/05/18 Unknown Wound - Mouth Gram Stain - Final 12/31/17 11:40 Blood - Peripheral Aerobic Blood Culture - Final No growth in 5 days 12/31/17 11:40 Blood - Peripheral Anaerobic Blood Culture - Final No growth in 5 days 12/31/17 11:40 Blood - Peripheral Aerobic Blood Culture - Final No growth in 5 days 12/31/17 11:40 Blood - Peripheral Anaerobic Blood Culture - Final No growth in 5 days Assessment and Plan - Assessment (1) Odontogenic infection of jaw Code(s): M27.2 - Inflammatory conditions of jaws Status: Acute - Plan Mr. Hoang is a pleasant 47-year-old male with no significant medical history who was admitted to the hospital on 12/31/2017 due to left-sided odontogenic jaw infection. CT facial bones revealed superficial cellulitis without abscess. ENT was consulted who recommended oral surgery evaluation in the outpatient setting. No ENT acute issues. Infectious disease was consulted who recommended Unasyn IV. Odontogenic infection of left jaw -Continue Unasyn 3 g IV every 6 hours. Infectious disease is following. -Dr. Farfan was kind enough to drain abscess, extract teeth in his office on 01/05/2018. -Received 125mg Once and d/c Decadron. -Likely discharge home on 01/07 on PO abx. -Currently on acetaminophen and morphine IV for pain control. -We will obtain CBC tomorrow. Full code. Heparin subcutaneous.
[2018-01-06 20:42] VITALS: RESP 18
[2018-01-07] MEDS: Ampicillin/Sulbactam Inj 3 GM in Sodium Chloride 0.9% Inj 100 ML IV.SIG SCH (05:21)
[2018-01-07] MEDS: Sod Chloride 0.9% Inj 1,000 ML IV.CONT SCH (05:22)
[2018-01-07] MEDS: Heparin - SQ 10,000 UNITS/ML Vial SQ SCH (05:22)
[2018-01-07] MEDS: Senna/Docusate Sodium 8.6/50 MG Tablet PO SCH (08:25)
[2018-01-07] MEDS: Famotidine PF Inj 20 MG/2 ML Vial IV.PUSH SCH (08:25)
[2018-01-07 09:08] VITALS: BP 123/52; PULSE 52; TEMP 97.9; O2SAT 97
--- NOTE | 2018-01-07 09:21 | P.DS ---
Date of admission: 12/31/17 16:43 Primary care physician: No Primary Care Physician Brief History from admission: This is a 47-year-old male. Date of admission 12/31/2017. Past medical history is nil. Yesterday, patient was eating a pork chop when he felt like he bit into some cartilage or bone at the back of his tongue. No complications immediately post noted per patient. This morning, patient awoke with a swollen left mandible. Patient took ibuprofen and acetaminophen without relief. He also placed ice on this without relief. He had difficulty swallowing. He presented to [facility] for further evaluation treatment. Patient was noted to have a leukocytosis of 32,000. CT facial bones revealed superficial cellulitis without abscess involving the mandibular symphysis to the left with thickening of the platysma. There is also asymmetry of the tonsils and lateral pharyngeal wall with possible increased density within the prestyloid pericardial space to the left. There is a mucosal lesion involving the tonsils well noted at the tongue base is not excluded and they recommended direct visualization. ENT was consulted by the ED. Patient received 900 mg of clindamycin and 10 mg of dexamethasone. Patient currently has 2 finger trismus. Unable to visualize uvula directly. There is obvious erythema. There is normal phonation. Patient complaining of thirst. We are asked to observe in ICU DS: Diagnosis - Discharge Diagnosis (1) Odontogenic infection of jaw Status: Acute DS: Medications - Discharge Medications Prescriptions: amoxicillin-pot clavulanate [Augmentin] 1 tab PO Q12H #20 tab tramadol 50 mg PO Q6H #12 tab DS: Summary Hospital Course: Mr. Hoang is a pleasant 47-year-old male with no significant medical history who was admitted to the hospital on 12/31/2017 due to left-sided odontogenic jaw infection. CT facial bones revealed superficial cellulitis without abscess. ENT was consulted who recommended oral surgery evaluation in the outpatient setting. No ENT acute issues. Infectious disease was consulted who recommended Unasyn IV. Odontogenic infection of left jaw -Continue Unasyn 3 g IV every 6 hours. Infectious disease is following. -Dr. Farfan was kind enough to drain abscess, extract teeth in his office on 01/05/2018. -Received 125mg Once and d/c Decadron. -Discharge home on 01/07 on PO abx. -Currently on acetaminophen and morphine IV for pain control. -CBC today shows significant decrease in WBC count - from 26K to 14K. -Discussed with Dr. Farfan who recommended discharge and follow up on 2017 in their office to take the drain out. Full code. Heparin subcutaneous. Checked E-forcse site. No data found with regards to narcotic prescriptions. Will give patient 3 days of Tramadol for post-surgery pain. - Time Spent with Patient Total time spent providing and/or coordinating discharge services: Less than 30 minutes - Quality: VTE Deep Vein Thrombosis/Pulmonary Embolism Present on Admission: No Exam Vital signs: Vital Signs 01/06/18 12:00 01/06/18 16:00 01/06/18 20:00 Temperature 97.8 F 98.1 F 97.9 F Pulse Rate 67 59 L 73 Respiratory Rate 18 17 18 Blood Pressure 126/74 133/79 134/85 Pulse Oximetry 98 96 97 01/07/18 00:00 01/07/18 04:00 01/07/18 08:00 Temperature 97.5 F L 97.7 F 97.9 F Pulse Rate 56 L 61 52 L Respiratory Rate 18 18 18 Blood Pressure 136/78 123/69 123/76 Pulse Oximetry 97 98 97 01/07/18 09:07 Temperature 97.9 F Pulse Rate 52 L Respiratory Rate 18 Blood Pressure 123/52 L Pulse Oximetry 97 Intake & Output 01/06/18 01/07/18 01/07/18 18:59 06:59 18:59 Intake Total 1400 / 1400 1100 / 1100 100 / 100 Output Total 1300 / 1300 500 / 500 Balance 100 / 100 600 / 600 100 / 100 Weight 101.2 kg Intake: IV 1400 / 1400 1100 / 1100 100 / 100 NS Inj 1,000 ML @ 84 mls/hr IV. 1000 / 1000 1000 / 1000 CONT .[id number] NOHEMY Rx#:[id number] Ofirmev Inj 1,000 mg In 100 ml 100 / 100 @ 400 mls/hr IV.SIG Q6H PRN Rx# :[id number] Unasyn Inj 3 GM In NS Inj 100 300 / 300 100 / 100 100 / 100 ML @ 200 mls/hr IV.SIG Q6H NOHEMY Rx#:[id number] Output: Urine 1300 / 1300 500 / 500 Other: # Voids 5 1 Date of Last Bowel Movement 01/05/18 # Bowel Movements 1 Results Procedures completed during hospitalization: I&D of abscess and teeth extraction at Dr. Farfan's office. - Impressions ITS Impressions Face CT 12/31/17 11:01 CONCLUSION: Phlegmonous changes involving the academic director space on the 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 The findings may be related to dental disease. There is no evidence of abscess. Soft Tissue Neck CT 12/31/17 11:34 CONCLUSION: Superficial cellulitis without abscess Possible mucosal lesion involving the left tonsil as well as the tongue base. Direct visualization is recommended Discharge Plan - Discharge Disposition Patient Disposition: 01 Discharge Home - Discharge Condition Condition: Good - Discharge Order Discharge Orders: Discharge Order (Routine); Ordered 01/07/18 Ordered By: Carmine Winchester - Discharge Details Anticipated Discharge Date: 01/07/18 Discharge Comment: Dr. Farfan's office address: [address] [place] [phone]. [phone] - Physicians Team Primary Care Provider: Primary Care Physici,No Attending Provider: Carmine Winchester Other Providers: Simón Stafford MD ; Amina Patel MD
[2018-01-07 09:40] LABS: Eos # (Auto) 0.2 th/mm3 (0.0-0.4); Eos % (Auto) 1.2 % (0.0-4.0); Hematocrit 39.6 % (39.0-51.0); Hemoglobin 13.3 gm/dL (13.0-17.0); Lymph # (Auto) 5.1 th/mm3 (1.0-4.8); Lymph % (Auto) 35.3 % (9.0-44.0); Mean Corpuscular HGB Conc 33.6 % (32.0-36.0); Mean Corpuscular Hemoglobin 29.6 pg (27.0-34.0); Mean Corpuscular Volume 88.2 fL (80.0-100.0); Mean Platelet Volume 8.4 fL (7.0-11.0); Mono # (Auto) 1.3 th/mm3 (0.0-0.9); Mono % (Auto) 8.8 % (0.0-8.0); Neut # (Auto) 7.9 th/mm3 (1.8-7.7); Neut % (Auto) 54.7 % (16.0-70.0); Platelet Count 323 th/mm3 (150-450); Red Blood Count 4.49 mil/mm3 (4.50-5.90); White Blood Count 14.4 th/mm3 (4.0-11.0)
[2018-01-07 09:56] LABS: Calcium 8.1 mg/dL (8.5-10.1); Potassium 3.8 meq/L (3.5-5.1)
[2018-01-07 12:05] LABS: Eosinophils 2 % (0-4); Lymphocytes 28 % (9-44); Monocytes 8 % (0-8); Myelocytes 1 % (0-0); Plasma Cells 1 % (0-0); Platelet Estimate Normal (Normal); Platelet Morphology Normal (Normal); RBC Morphology Normal (Normal)
== END 2018-01-07 11:32 | disposition home or self-care (01) ==
LOC: NEPD 09:00 → NEDA 16:43 → HIMC 18:00 → N05 01-01 13:26
PROVIDERS: ADMIT Hospitalist; ATTEND Hospitalist
DX: R13.10 Dysphagia, unspecified; M27.2 Inflammatory conditions of jaws; Z82.49 Family history of ischemic heart disease and other diseases of the circulatory system; I10 Essential (primary) hypertension; R22.1 Localized swelling, mass and lump, neck; L03.211 Cellulitis of face; K04.7 Periapical abscess without sinus